=== PATIENT | female | born 1980 | race Caucasian/White ===

== ENCOUNTER 2017-12-01 12:08 | Inpatient (IN) | payer SELFPAY ==
[2017-12-01 12:47] VITALS: BMI 27.2
[2017-12-01 12:52] LABS: #Eosinphils 0.1 thou/uL (0.0-0.7); #Lymphocytes 1.4 thou/uL (1.20-3.40); #Monocytes 0.5 thou/uL (0.11-0.59); #Neutrophils 9.2 thou/uL (1.40-6.50); %Basophils 0.1 % (0.0-1.0); %Eosinophils 1.3 % (0.0-10.0); %Lymphocytes 12.1 % (21.0-51.0); %Monocytes 4.8 % (0.0-10.0); %Neutrophils 81.8 % (42.0-75.0); Hemoglobin 13.7 g/dL (12.0-16.0); Mean Corpuscular HGB CONC 34.8 g/dL (32.0-36.0); Mean Corpuscular Hemoglobin 29.9 pg (27.0-31.0); Platelet Count 112 thou/uL (130-400); RBC Distribution Width 14.5 % (11.5-14.5); Red Blood Cell (RBC) Count 4.58 mill/uL (4.20-5.40); White Blood Cell (WBC) Count 11.6 thou/uL (4.8-10.8)
[2017-12-01] MEDS ORDERED: Ondansetron HCl/PF 4 MG/2 ML Vial IVP PRN ×2 (13:34→17:05)
[2017-12-01] MEDS ORDERED: HYDROcodone/Acetaminophen 5/325 mg Tablet PO PRN ×4 (13:34→19:00)
[2017-12-01] MEDS ORDERED: Lidocaine 1% (PF) 30 ML VIAL SC PRN (13:34)
[2017-12-01] MEDS ORDERED: NS / Oxytocin 40 units/1000ml 1,000 ML IV PRN (13:34)
[2017-12-01] MEDS ORDERED: NS / Oxytocin 40 units/1000ml 1,000 ML ONE (13:45)
[2017-12-01] MEDS ORDERED: Lidocaine 1% (PF) 30 ML VIAL ONE (13:45)
[2017-12-01] MEDS ORDERED: Lactated Ringer's 1,000 ML IV SCH ×2 (13:45)
--- NOTE | 2017-12-01 14:12 | HP ---
DATE OF SERVICE: 12/01/2017. TIME OF EVALUATION: At bedside at 12:20. LOCATION: Labor and Delivery, bed 7. REASON FOR EVALUATION: This is a patient who was transferred by [facility] for heart tones, which were found during the labor process by auscultation. The [facility] staff is with the patient as is the family. HISTORY OF PRESENT ILLNESS: In brief, the patient is a 37-year-old G4, P3 with 3 prior vaginal births, who at around 11:50 had a cervical exam at [facility] that was 8 cm prior to transport. That was the last check at [facility]. She was transferred here because they heard decelerations with contraction. ALLERGIES: She has no allergies. PAST SURGICAL HISTORY: None. OB HISTORY: Significant for 3 prior vaginal births. PHYSICAL EXAMINATION: VITAL SIGNS: Stable and she is afebrile. She is not hypertensive. GENERAL: She is in no acute distress, but has contraction discomfort. ABDOMEN: Gravid with an EFW of about 7 pounds. Cervical exam by me at roughly 1230 was 8 cm/90 percent effaced/-1, cephalic presentation. Moderate meconium was noted. The [facility] nursing staff said that she underwent spontaneous rupture of membranes at about 10:30 and by their verbal report, the fluid was clear. MONITORS: heart tones are in the 130s with moderate variability. It is important to note that at the moment of printing roller polisher of this H&P and of the handwritten note which is also in the physical chart, only about 3-4 minutes of strip was visible as I intercepted the patient right as she was being admitted. Contractions on tocodynamometer are about every 2-3 minutes. ASSESSMENT and PLAN: This is a 37-year-old G4, P3 at 40 weeks gestation and 6 days, who was brought from the [facility] in the active phase of labor for decelerations on auscultation. I evaluated the patient as she was being admitted and found her to be 8 cm. Currently, I only have about 6 minutes of strip and I find that the contractions are regular about every 2-3 minutes with moderate variability and some variable decelerations. One of the decelerations actually looked late appearing. Currently, IV fluids are going in place and she is in her lateral decubitus position. I have discussed with the family, and the [facility] staff, and the patient, right now we are in observation mode as I only have less than 10 minutes of tracing. If the heart tones are persistently nonreassuring, we may consider primary C- section. I have also asked for anesthesia to see the patient, so that they are familiar with her. We also discussed with the family the presence of meconium and at 40 weeks can be a physiological finding. However, in the presence of decelerations, it does increase the risk of meconium aspiration syndrome. I also discussed with them that amnioinfusion is not recommended as it may increase the risk of meconium aspiration syndrome. For now, she is 8 cm with decelerations on a limited Doppler tracing. I will continue to get at least a 20-30 minute strip and then make further decisions based on those findings at that time. I also told the family that Dr. Love, my partner, will relieve me at 1300 until 1600 at which time he will be on the unit. YAW
[2017-12-01] MEDS ORDERED: Bupivacaine 0.75% 13.4 ML, fentaNYL Citrate/PF 400 MCG in Sodium Chloride 0.9% 78.6 ML EPIDURAL SCH (14:15)
[2017-12-01] MEDS ORDERED: DISCONTINUE ALL PREVIOUS NARCOTICS FS SCH (14:15)
[2017-12-01 14:47] LABS: HBSAg Index 0.23 S/CO (0-0.99); Hep B Surf Ag Non-Reactive S/CO (NonReactive)
[2017-12-01 14:55] LABS: Syphilis Antibody Nonreactive (Nonreactive); Syphilis Antibody Index 0.05 S/CO (<1.00 Non-Reactive)
[2017-12-01] MEDS ORDERED: Preparation H Ointment 28 GM TUBE PR PRN (17:05)
[2017-12-01] MEDS ORDERED: NS / Oxytocin 40 units/1000ml 1,000 ML IV SCH (17:05)
[2017-12-01] MEDS ORDERED: Adacel (T-DAP) 0.5 ML VIAL IM ONE (17:05)
[2017-12-01] MEDS ORDERED: Milk Of Magnesia 30 ML UDCUP PO PRN (17:05)
[2017-12-01] MEDS ORDERED: Bisacodyl 10 MG SUPP PR PRN (17:05)
[2017-12-01] MEDS ORDERED: Lanolin Ointment 7 GM TUBE TOP PRN (17:05)
[2017-12-01] MEDS: Ferrous Sulfate 325 MG TAB PO SCH (17:14)
--- NOTE | 2017-12-01 19:01 | PDOC.EVN ---
Event Note - Event Note Event Note: Called by RD on . Patient s/p motrin but requesting additional pain meds. Ordered norco 5/325 prn
--- NOTE | 2017-12-01 19:17 | OP ---
Ms. Rosa delivered a male infant at 10:30 a.m. on 12/01/2017. Delivery was complicated by nuchal co rd x1. Placenta delivered spontaneously followed by Pitocin infusion. Estimated blood loss 200 mL. Quantitative blood loss is pending. Dr. Love is the delivering [facility]. There were no lacerations. Mother and baby are stable in the immediate in the [facility]
[2017-12-01] MEDS: Docusate Calcium (SURFAK) 240 MG CAP PO SCH (21:28)
[2017-12-01] MEDS ORDERED: Ibuprofen 800 MG TAB PO SCH (22:00)
[2017-12-02] MEDS: Ibuprofen 800 MG TAB PO SCH ×2 (00:03→11:06)
--- NOTE | 2017-12-02 04:59 | PDOC.PP ---
Post Progress Note Post Day #: 1 Subjective: Doing well PO intake tolerated: yes Flatus: yes Ambulation: yes Vital Signs (12 hours) Temp Pulse Resp BP BP Pulse Ox 12/02/17 04:08 97.8 F 59 L 18 103/59 L 12/02/17 00:08 98.0 F 74 16 98/50 L 12/01/17 19:42 98.2 F 73 18 12/01/17 19:40 98.2 F 73 18 107/57 L 98 12/01/17 17:20 99.1 F 67 20 12/01/17 17:05 99.1 F 67 20 106/61 Weight Weight 174 lb - Physical Examination General: NAD Cardiovascular: no m/r/g Respiratory: clear to auscultation bilaterally Abdominal: + bowel sounds, lochia, no distention, appropriately TTP Extremities: negative homans (B) Neurological: no gross focal deficits Psychiatric: A&Ox3, normal affect Result Diagrams: 12/01/17 12:40 Additional Labs: Post Labs Blood Type A POSITIVE 12/01/17 12:29 Hep Bs Antigen Non-Reactive S/CO (NonReactive) 12/01/17 12:29 (1) Vaginal delivery Code(s): O80 - ENCOUNTER FOR FULL-TERM UNCOMPLICATED DELIVERY Status: Acute - Assessment/Plan Patient s/p by Dr Love yesterday at 1420 or so. She is doing well and would like to be discharged home this PM after 24 hours . Motrin written as RX by me. Cleared for afternoon discharge later today.Baby well... weight was 4200grams.
--- NOTE | 2017-12-02 05:01 | PDOC.EVN ---
Event Note - Event Note Event Note: Discharge note Admit: 12/01/17 Discharge: 12/02/17 Procedure: Multigravida In brief, patient arrived from [facility] in labor, for decels. She progressed to shortly after her arrival to L&D. Apgars were 8 and 9. Baby weight was 4200grams (approx). Home on day 1.
[2017-12-02 06:21] LABS: Hemoglobin 10.8 g/dL (12.0-16.0); Mean Corpuscular HGB CONC 34.5 g/dL (32.0-36.0); Mean Corpuscular Hemoglobin 30.2 pg (27.0-31.0); Mean Corpuscular Volume 87.6 fL (78.0-98.0); Mean Platelet Volume 10.3 fL (7.4-10.4); Platelet Count 91 thou/uL (130-400); RBC Distribution Width 14.5 % (11.5-14.5); Red Blood Cell (RBC) Count 3.56 mill/uL (4.20-5.40); White Blood Cell (WBC) Count 10.8 thou/uL (4.8-10.8)
[2017-12-02] MEDS ORDERED: Prenatal Vitamin 1 TAB PO SCH (09:00)
[2017-12-02] MEDS: Docusate Calcium (SURFAK) 240 MG CAP PO SCH (11:06)
[2017-12-02] MEDS: Ferrous Sulfate 325 MG TAB PO SCH (11:06)
[2017-12-02 12:31] VITALS: BP 111/60; TEMP 98
== END 2017-12-02 18:45 | disposition home or self-care (01) | DRG 775 ==
LOC: L&D/OP 12:08 → L&D 12:33 → 3SE 17:21
PROVIDERS: ADMIT Obstetrics & Gynecology; ATTEND Obstetrics & Gynecology
PROC: 10E0XZZ Delivery of Products of Conception, External Approach (ICD-10-PCS; principal; 2017-12-01)
DX: O76 Abnormality in fetal heart rate and rhythm complicating labor and delivery (principal); O69.81X0 Labor and delivery complicated by cord around neck, without compression, not applicable or unspecified; Z3A.40 40 weeks gestation of pregnancy; Z37.0 Single live birth
CPT/HCPCS: 85027; 86780; 86850; 86870; 86880; 86900; 86901; 86905; 86922; 87340; 99285; J2001; J3010; J7050